=== PATIENT | female | born 1945 | race Caucasian/White ===

== ENCOUNTER 2019-04-24 21:01 | Inpatient (IN) ==
[2019-04-24] MEDS ORDERED: Ipratropium/Albuterol Neb 3 ML IH ONE (21:25)
[2019-04-24] MEDS ORDERED: methylPREDNISolone 125 MG/2 ML VIAL IVP ONE (21:25)
[2019-04-24 21:46] LABS: Basophils # 0.1 K/mcL (0.0-0.2); Basophils % 0.8 %; Eosinophils # 0.1 K/mcL (0.0-0.6); Eosinophils % 0.9 %; Hemoglobin 14.6 g/dL (11.5-15.4); Immature Granulocytes % 0.3 % (0-4); Lymphocytes % 8.5 %; Mean Corpuscular Hemoglobin 33.3 pg (28.0-33.3); Mean Corpuscular Volume 97.9 fL (83.0-100.0); Mean Platelet Volume 8.8 fL (9.4-12.4); Monocytes # 0.3 K/mcL (0.0-1.3); Monocytes % 2.5 %; Neutrophils # 10.1 K/mcL (1.6-8.9); Platelet Count 320 K/mcL (140-400); Red Blood Count 4.39 M/mcL (3.82-4.97); Red Cell Distribution Width 14.5 % (11.5-14.5); White Blood Count 11.6 K/mcL (4.3-11.1)
[2019-04-24 21:54] LABS: Prothrombin Time 10.8 Seconds (9.4-12.1)
[2019-04-24 21:56] LABS: Activated Partial Thrombo Time 39.3 Seconds (26.0-36.0)
[2019-04-24 22:11] LABS: BUN/Creatinine Ratio 13 (6-26); Blood Urea Nitrogen 10 mg/dL (8-23); Calcium 9.6 mg/dL (8.6-10.3); Carbon Dioxide 30 mEq/L (23-29); Chloride 101 mEq/L (98-107); Glucose 129 mg/dL (70-105); Osmolality,Calculated 289 (280-300); Potassium 4.1 mEq/L (3.5-5.1); Sodium 139 mEq/L (136-145); Troponin I < 0.03 ng/mL (< 0.04); eGFR For African Americans > 60 (> 60); eGFR For Non-African Americans > 60 (> 60)
[2019-04-24 22:25] LABS: Thyroid Stimulating Hormone 1.173 mcIU/mL (0.340-5.600)
[2019-04-25] MEDS ORDERED: Naloxone 0.4 MG/ML INJ IVP PRN (04:03)
[2019-04-25] MEDS ORDERED: Albuterol 2.5 MG/3 ML NEBULIZER IH PRN (04:08)
[2019-04-25] MEDS ORDERED: Acetaminophen 325 MG TABLET PO PRN (04:38)
[2019-04-25] MEDS: Ipratropium/Albuterol Neb 3 ML IH SCH ×4 (04:43→22:07)
[2019-04-25] MEDS: Azithromycin 500 MG in 0.9 % Sodium Chloride 250 ML IVPB SCH (05:13)
[2019-04-25] MEDS: MethylPREDNISolone 40 MG/ML VIAL IVP SCH ×2 (05:13→15:59)
[2019-04-25 06:35] LABS: Hematocrit 41.5 % (35.3-44.9); Hemoglobin 13.9 g/dL (11.5-15.4); Mean Corpuscular HGB Conc 33.5 g/dL (31.6-35.5); Mean Corpuscular Hemoglobin 32.5 pg (28.0-33.3); Mean Platelet Volume 8.8 fL (9.4-12.4); Platelet Count 297 K/mcL (140-400); Red Blood Count 4.28 M/mcL (3.82-4.97); Red Cell Distribution Width 14.5 % (11.5-14.5)
[2019-04-25 06:40] LABS: White Blood Count 5.4 K/mcL (4.3-11.1)
[2019-04-25 06:56] LABS: BUN/Creatinine Ratio 14 (6-26); Blood Urea Nitrogen 10 mg/dL (8-23); Calcium 9.2 mg/dL (8.6-10.3); Carbon Dioxide 31 mEq/L (23-29); Chloride 99 mEq/L (98-107); Glucose 173 mg/dL (70-105); Osmolality,Calculated 291 (280-300); Potassium 4.5 mEq/L (3.5-5.1); Sodium 139 mEq/L (136-145); eGFR For African Americans > 60 (> 60); eGFR For Non-African Americans > 60 (> 60)
[2019-04-25] MEDS ORDERED: *HR* OxyCODONE/APAP 5/325 TABLET PO PRN (12:50)
[2019-04-25] MEDS ORDERED: MethylPREDNISolone 40 MG/ML VIAL IVP SCH (16:00)
[2019-04-25] MEDS ORDERED: NON-FORMULARY MEDICATION 1 EACH EACH (Oxygen 2 L) IH PRN (16:04)
[2019-04-25] MEDS ORDERED: Hyoscyamine SL 0.125 MG TAB.SUBL PO PRN (16:04)
[2019-04-25] MEDS: *HR* Heparin 5,000 UNIT/ML VIAL SQ SCH (17:23)
[2019-04-25] MEDS: Acetylcysteine 10% 2 ML INHSOL IH SCH ×3 (18:05→22:07)
[2019-04-25] MEDS ORDERED: Isovue-370 500 ML BOTTLE IVP ONE (19:22)
[2019-04-25] MEDS: Famotidine 20 MG TABLET PO SCH (21:48)
[2019-04-25] MEDS ORDERED: Ibuprofen 600 MG TABLET PO ONE (21:54)
[2019-04-25] MEDS: Budesonide/Formoterol 160/4.5 1 PUFF INH IH SCH (22:09)
[2019-04-25] MEDS ORDERED: Perflutren Lipid Microsphere 1.3 ML in 0.9 % Sodium Chloride 8.7 ML IVP ONE (22:17)
[2019-04-26] MEDS: Ipratropium/Albuterol Neb 3 ML IH SCH ×4 (04:20→22:07)
[2019-04-26] MEDS: Acetylcysteine 10% 2 ML INHSOL IH SCH ×4 (04:21→22:08)
[2019-04-26] MEDS: Azithromycin 500 MG in 0.9 % Sodium Chloride 250 ML IVPB SCH (05:21)
[2019-04-26] MEDS: *HR* Heparin 5,000 UNIT/ML VIAL SQ SCH ×2 (05:49→17:28)
[2019-04-26 05:55] LABS: Basophils % 0.3 %; Eosinophils % 0.3 %; Hemoglobin 12.6 g/dL (11.5-15.4); Immature Granulocytes % 0.3 % (0-4); Lymphocytes # 2.4 K/mcL (0.6-4.6); Lymphocytes % 21.4 %; Mean Corpuscular HGB Conc 34.1 g/dL (31.6-35.5); Mean Corpuscular Hemoglobin 33.2 pg (28.0-33.3); Mean Corpuscular Volume 97.4 fL (83.0-100.0); Mean Platelet Volume 9.6 fL (9.4-12.4); Monocytes # 0.9 K/mcL (0.0-1.3); Monocytes % 7.9 %; Neutrophils # 7.8 K/mcL (1.6-8.9); Platelet Count 277 K/mcL (140-400); Red Cell Distribution Width 14.4 % (11.5-14.5); Segmented Neutrophils % 69.8 %
[2019-04-26 06:02] LABS: White Blood Count 11.2 K/mcL (4.3-11.1)
[2019-04-26 06:06] LABS: BUN/Creatinine Ratio 19 (6-26); Blood Urea Nitrogen 15 mg/dL (8-23); Calcium 8.8 mg/dL (8.6-10.3); Carbon Dioxide 30 mEq/L (23-29); Chloride 102 mEq/L (98-107); Glucose 102 mg/dL (70-105); Osmolality,Calculated 291 (280-300); Potassium 4.1 mEq/L (3.5-5.1); Sodium 140 mEq/L (136-145); eGFR For African Americans > 60 (> 60); eGFR For Non-African Americans > 60 (> 60)
[2019-04-26] MEDS: amLODIPine 5 MG TABLET PO SCH (08:51)
[2019-04-26] MEDS: Famotidine 20 MG TABLET PO SCH (08:51)
[2019-04-26] MEDS: predniSONE 20 MG TABLET PO SCH (08:51)
[2019-04-26] MEDS: Budesonide/Formoterol 160/4.5 1 PUFF INH IH SCH ×2 (10:36→22:07)
[2019-04-26 23:43] LABS: Bilirubin,Urine Negative (Negative); Blood,Urine Negative (Negative); Clarity,Urine Clear (Clear); Color,Urine Yellow (Yellow); Glucose,Urine (UA) Normal (Normal); Ketones,Urine Negative (Negative); Leukocyte Esterase,Urine Small (Negative); Nitrite,Urine Negative (Negative); PH,Urine 6.5 pH Units (5.0-8.0); Protein,Urine Negative (Neg-Trace); Specific Gravity,Urine 1.024 (1.010-1.025); Urobilinogen,Urine Normal (Normal)
[2019-04-26 23:44] LABS: Bacteria,Urine None Seen per hpf (None-Few); Hyaline Casts,Urine None Seen per lpf (None-Few); Squamous Epithelial Cell,Urine Many per lpf (None-Few)
[2019-04-26] MEDS ORDERED: Ibuprofen 600 MG TABLET PO ONE (23:45)
[2019-04-27] MEDS: Ipratropium/Albuterol Neb 3 ML IH SCH ×2 (04:20→10:43)
[2019-04-27] MEDS: Acetylcysteine 10% 2 ML INHSOL IH SCH ×2 (04:20→10:43)
[2019-04-27] MEDS: *HR* Heparin 5,000 UNIT/ML VIAL SQ SCH (04:53)
[2019-04-27] MEDS: Azithromycin 500 MG in 0.9 % Sodium Chloride 250 ML IVPB SCH (05:03)
[2019-04-27 05:45] LABS: Basophils % 0.3 %; Eosinophils % 0.2 %; Hematocrit 38.9 % (35.3-44.9); Hemoglobin 12.5 g/dL (11.5-15.4); Immature Granulocytes % 0.4 % (0-4); Lymphocytes # 2.3 K/mcL (0.6-4.6); Mean Corpuscular HGB Conc 32.1 g/dL (31.6-35.5); Mean Corpuscular Hemoglobin 32.7 pg (28.0-33.3); Mean Corpuscular Volume 101.8 fL (83.0-100.0); Mean Platelet Volume 9.1 fL (9.4-12.4); Monocytes # 0.9 K/mcL (0.0-1.3); Neutrophils # 7.5 K/mcL (1.6-8.9); Platelet Count 297 K/mcL (140-400); Red Blood Count 3.82 M/mcL (3.82-4.97); Red Cell Distribution Width 14.6 % (11.5-14.5); Segmented Neutrophils % 70.1 %; White Blood Count 10.7 K/mcL (4.3-11.1)
[2019-04-27] MEDS ORDERED: Famotidine 20 MG/2 ML VIAL IVP ONE (06:01)
[2019-04-27 06:04] LABS: BUN/Creatinine Ratio 22 (6-26); Blood Urea Nitrogen 19 mg/dL (8-23); Calcium 9.1 mg/dL (8.6-10.3); Carbon Dioxide 33 mEq/L (23-29); Chloride 100 mEq/L (98-107); Glucose 83 mg/dL (70-105); Osmolality,Calculated 293 (280-300); Potassium 3.8 mEq/L (3.5-5.1); Sodium 141 mEq/L (136-145); eGFR For African Americans > 60 (> 60); eGFR For Non-African Americans > 60 (> 60)
[2019-04-27] MEDS ORDERED: Ondansetron 4 MG/2 ML VIAL ONE (07:29)
[2019-04-27] MEDS ORDERED: Lidocaine -MPF 2% 2 ML VIAL ONE (07:29)
[2019-04-27] MEDS ORDERED: *HR* Succinylcholine 200 MG/10 ML VIAL IVP ONE (07:29)
[2019-04-27] MEDS ORDERED: *HR* Propofol 200 MG/20 ML VIAL IVP ONE (07:29)
[2019-04-27] MEDS ORDERED: Lidocaine -MPF 4% 5 ML AMPUL ONE (07:31)
[2019-04-27] MEDS ORDERED: *HR* PHENYLEPHRINE 1,000 MCG/10 ML SYRINGE IVP ONE (07:32)
[2019-04-27] MEDS ORDERED: Dexamethasone 4 MG/ML VIAL ONE (08:35)
[2019-04-27] MEDS ORDERED: Famotidine 20 MG TABLET PO SCH (09:00)
[2019-04-27] MEDS: Budesonide/Formoterol 160/4.5 1 PUFF INH IH SCH (10:43)
[2019-04-27 10:53] VITALS: BP 112/65
[2019-04-27 11:32] LABS: Source of Body Fluid LLL BAL
[2019-04-27] MEDS: predniSONE 20 MG TABLET PO SCH (12:29)
[2019-04-27] MEDS: amLODIPine 5 MG TABLET PO SCH (12:29)
[2019-04-27 13:49] LABS: Appearance of Body Fluid Cloudy (Clear); Volume of Body Fluid 12 mL
[2019-04-29 18:30] LABS: Influenza A PCR Body Fluid NOT DETECTED; Influenza B PCR Body Fluid NOT DETECTED; RVP Body Fluid Source BAL LLL
[2019-04-30 10:15] LABS: RSV PCR Body Fluid NOT DETECTED
[2019-05-01 20:33] LABS: HSV Source BAL
== END 2019-04-27 14:14 | disposition home or self-care (01) | DRG 191 ==
LOC: EMEROOARM 21:01 → 3BNU 21:01
PROVIDERS: ADMIT Family Medicine; ATTEND Family Medicine